=== PATIENT | female | born 1960 | race Caucasian/White ===

== ENCOUNTER 2020-07-07 18:47 | Observation (INO) | payer OTHER ==
[~2020-07-07] VITALS: Ht 160 cm; Wt 87.5 kg
[~2020-07-07 18:47] MED LIST: ALPRAZOLAM0.5 MG PO; ASPIRIN 325MG325 MG PO; ATIVAN1 MG PO; ATORVASTATIN CA20 MG PO; CATAPRES0.3 MG PO; CLOPIDOGREL75 MG PO; HYDROCHLOROTHIA25 MG PO; LISINOPRIL40 MG PO; LITHOBID C.R.300 MG PO; LODINE CAP 300300 MG PO; LOPRESSOR 50 MG50 MG PO; NICOTINE PATCH1 EAC1 TD; ZOFRAN ODT 4 MG4 MG GT; ZOFRAN ODT 4 MG4 MG PO
[2020-07-07 19:35] LABS: HEMOGLOBIN 14.9 gm/dl (12.3-15.3); RED BLOOD COUNT 4.93 M/UL (4.00-5.10); WHITE BLOOD COUNT 7.8 K/UL (4.5-11.0)
[2020-07-07 20:01] LABS: BUN/CREATININE RATIO 23 (0-10)
[2020-07-08 04:02] LABS: HEMOGLOBIN 13.8 gm/dl (12.3-15.3); RED BLOOD COUNT 4.65 M/UL (4.00-5.10); WHITE BLOOD COUNT 8.9 K/UL (4.5-11.0)
[2020-07-08 04:24] LABS: BUN/CREATININE RATIO 26 (0-10)
[2020-07-08] MEDS ORDERED: CLONIDINE HCL0.3 MG PO (15:31)
== END 2020-07-08 20:50 | disposition left against medical advice (07) ==
LOC: ER1 18:47 → CDU 21:46 → MED SURG 4 07-08 14:59
PROVIDERS: Emergency Medicine; Internal Medicine; ADMIT Internal Medicine
DX: G92 Toxic encephalopathy (principal); R41.0 Disorientation, unspecified; F31.9 Bipolar disorder, unspecified; I10 Essential (primary) hypertension; F19.10 Other psychoactive substance abuse, uncomplicated; F17.210 Nicotine dependence, cigarettes, uncomplicated; F41.9 Anxiety disorder, unspecified; I25.2 Old myocardial infarction; Z87.09 Personal history of other diseases of the respiratory system; Z20.822 Contact with and (suspected) exposure to COVID-19
CPT/HCPCS: 0240U; 36600; 70450; 71045; 80048; 80053; 80178; 80307; 81001; 82140; 82550; 82553; 82803; 83605; 83690; 83735; 83874; 84439; 84443; 84484; 85025; 85610; 85730; 86140; 87040; 93005; 96365; 96366; 96367; 96368; 96375; 99285; G0378; G0480; J0456; J0696; J2060; J3480; J7030

== ENCOUNTER 2020-08-25 23:51 | Emergency (ER) | payer OTHER ==
[~2020-08-25 23:51] MED LIST changes: +CLONIDINE HCL0.3 MG PO
[2020-08-26 00:39] LABS: RED BLOOD COUNT 4.7 M/UL (4.00-5.10); WHITE BLOOD COUNT 9.4 K/UL (4.5-11.0)
[2020-08-26] MEDS ORDERED: VISTARIL25 MG PO (00:57)
[2020-08-26 00:59] LABS: BUN/CREATININE RATIO 17 (0-10)
== END 2020-08-26 07:55 | disposition home or self-care (01) ==
LOC: ER1 23:51
PROVIDERS: Emergency Medicine
DX: F41.1 Generalized anxiety disorder (principal); R06.00 Dyspnea, unspecified; I10 Essential (primary) hypertension; F17.210 Nicotine dependence, cigarettes, uncomplicated; Z90.710 Acquired absence of both cervix and uterus; Z20.822 Contact with and (suspected) exposure to COVID-19
CPT/HCPCS: 71045; 80053; 82550; 82553; 83735; 83874; 83880; 84100; 84484; 85025; 85610; 85730; 93005; 99284; U0002

== ENCOUNTER 2020-12-21 05:38 | Emergency (ER) | payer OTHER ==
[~2020-12-21 05:38] MED LIST changes: -CLONIDINE HCL0.3 MG PO; +VISTARIL25 MG PO
[2020-12-21 06:38] LABS: HEMOGLOBIN 13.8 gm/dl (12.3-15.3); RED BLOOD COUNT 4.6 M/UL (4.00-5.10); WHITE BLOOD COUNT 8.3 K/UL (4.5-11.0)
[2020-12-21 07:09] LABS: BUN/CREATININE RATIO 16 (0-10)
== END 2020-12-21 08:50 | disposition home or self-care (01) ==
LOC: ER1 05:38
PROVIDERS: Family Medicine
DX: I10 Essential (primary) hypertension (principal); R51.9 Headache, unspecified; Z79.899 Other long term (current) drug therapy; F17.200 Nicotine dependence, unspecified, uncomplicated
CPT/HCPCS: 70450; 71045; 80053; 82550; 82553; 83874; 83880; 84484; 85025; 93005; 96374; 99285; J0360

== ENCOUNTER 2020-12-27 10:26 | Observation (INO) | payer OTHER ==
[~2020-12-27] VITALS: Ht 157.5 cm; Wt 83.9 kg
[2020-12-27 11:30] LABS: HEMOGLOBIN 15.1 gm/dl (12.3-15.3); RED BLOOD COUNT 4.96 M/UL (4.00-5.10); WHITE BLOOD COUNT 9.3 K/UL (4.5-11.0)
[2020-12-27 11:54] LABS: BUN/CREATININE RATIO 19 (0-10)
[2020-12-27] MEDS ORDERED: PEPCID20 MG PO (14:28)
[2020-12-27] MEDS ORDERED: DRISDOL1250 MCG PO (14:28)
[2020-12-27] MEDS ORDERED: NITROSTAT0.4 MG SL (14:29)
[2020-12-27] MEDS ORDERED: SYNTHROID50 MCG PO (14:30)
[2020-12-27] MEDS ORDERED: CLONIDINE HCL0.3 MG PO (15:31)
[2020-12-28 04:20] LABS: HEMOGLOBIN 14.8 gm/dl (12.3-15.3); RED BLOOD COUNT 4.91 M/UL (4.00-5.10)
[2020-12-28 04:35] LABS: BUN/CREATININE RATIO 17 (0-10)
[2020-12-29 07:01] LABS: HEMOGLOBIN 15.6 gm/dl (12.3-15.3); RED BLOOD COUNT 5.17 M/UL (4.00-5.10)
[2020-12-29 07:05] LABS: WHITE BLOOD COUNT 6.7 K/UL (4.5-11.0)
[2020-12-29 07:31] LABS: BUN/CREATININE RATIO 26 (0-10)
--- NOTE | 2020-12-29 14:46 | NUR ---
12/29/20 1400 CONTACTED [facility] FOR [facility]. PT MEDICALLY CLEARED BY DR. CALIXTO.
== END 2020-12-29 19:03 ==
LOC: ER1 10:26 → MED SURG 4 13:07 → CDU 13:07 → MED SURG 4 17:20
PROVIDERS: Emergency Medicine; ADMIT Internal Medicine
DX: F29 Unspecified psychosis not due to a substance or known physiological condition (principal); E87.2 Acidosis; Z86.59 Personal history of other mental and behavioral disorders; I10 Essential (primary) hypertension; F17.200 Nicotine dependence, unspecified, uncomplicated; F19.11 Other psychoactive substance abuse, in remission; Z20.822 Contact with and (suspected) exposure to COVID-19; R91.8 Other nonspecific abnormal finding of lung field; R07.9 Chest pain, unspecified; R06.02 Shortness of breath; R30.0 Dysuria; E87.6 Hypokalemia; K82.8 Other specified diseases of gallbladder
CPT/HCPCS: 96374; 36415; 71045; 80048; 80053; 80307; 81001; 82140; 82550; 82553; 83605; 83735; 83874; 83880; 84100; 84132; 84484; 84703; 85025; 85027; 87040; 87086; 96372; 96375; 96376; 99285; G0378; G0480; J0360; J0696; J1650; J3475; Q9967; U0002

== ENCOUNTER 2021-07-05 11:10 | Emergency (ER) | payer OTHER ==
[~2021-07-05 11:10] MED LIST changes: +CLONIDINE HCL0.3 MG PO; +DRISDOL1250 MCG PO; +NITROSTAT0.4 MG SL; +PEPCID20 MG PO; +SYNTHROID50 MCG PO
[2021-07-05 12:18] LABS: HEMOGLOBIN 16.4 gm/dl (12.3-15.3); RED BLOOD COUNT 5.35 M/UL (4.00-5.10); WHITE BLOOD COUNT 8.1 K/UL (4.5-11.0)
[2021-07-05 13:33] LABS: BUN/CREATININE RATIO 18 (0-10)
[2021-07-05] MEDS ORDERED: ZOFRAN ODT 4 MG4 MG SL (22:45)
[2021-07-05] MEDS ORDERED: Magic Mouth Wash PO (22:45)
== END 2021-07-05 22:49 | disposition home or self-care (01) ==
LOC: ER1 11:10
PROVIDERS: Physician Assistant Medical
DX: B37.0 Candidal stomatitis (principal); R44.3 Hallucinations, unspecified; I10 Essential (primary) hypertension; F17.210 Nicotine dependence, cigarettes, uncomplicated
CPT/HCPCS: 80053; 80307; 81001; 82272; 83605; 84439; 84443; 85025; 99285; G0480

== ENCOUNTER 2022-02-20 08:17 | Emergency (ER) | payer OTHER ==
[~2022-02-20 08:17] MED LIST changes: +Magic Mouth Wash PO; +ZOFRAN ODT 4 MG4 MG SL
[2022-02-20 08:58] LABS: HEMOGLOBIN 13.7 gm/dl (12.3-15.3); RED BLOOD COUNT 4.82 M/UL (4.00-5.10); WHITE BLOOD COUNT 9.4 K/UL (4.5-11.0)
[2022-02-20 09:14] LABS: BUN/CREATININE RATIO 21 (0-10)
== END 2022-02-20 11:45 | disposition home or self-care (01) ==
LOC: ER1 08:17
PROVIDERS: Student in an Organized Health Care Education/Training Program
DX: F20.0 Paranoid schizophrenia (principal); I10 Essential (primary) hypertension; F17.200 Nicotine dependence, unspecified, uncomplicated
CPT/HCPCS: 80053; 80178; 85025; 99285